=== PATIENT | female | born 2000 | race Hispanic/Latino ===

== ENCOUNTER 2023-10-27 12:13 | Emergency (ER) | payer OTHER, SELFPAY ==
[2023-10-27] MEDS ORDERED: Bupivacaine 0.25% 10 ML VIAL ONE (13:18)
[2023-10-27] MEDS ORDERED: Bacitracin 1 PK ONE (14:02)
== END 2023-10-27 14:09 | disposition home or self-care (01) ==
LOC: ERS 12:13
DX: S61.012A Laceration without foreign body of left thumb without damage to nail, initial encounter (principal); W26.8XXA Contact with other sharp object(s), not elsewhere classified, initial encounter
CPT/HCPCS: 12002; 99282; J0665